=== PATIENT | female | born 1935 | race African-American/Black ===

== ENCOUNTER 2016-12-14 09:00 | Inpatient (IN) | payer OTHER ==
[2017-01-24 09:53] VITALS: BMI 31.7
[2017-01-24] MEDS ORDERED: TRANEXAMIC ACID 1000 MG/10 ML VIAL IVPUSH ONE (16:31)
[2017-01-24] MEDS ORDERED: GABAPENTIN 300 MG CAPSULE (FP) PO ONE (16:31)
[2017-01-24] MEDS ORDERED: CEFAZOLIN 2 GM in DEXTROSE 5%-WATER - 50 ML IVPB ONE (16:31)
[2017-01-24] MEDS ORDERED: ROPIVICAINE 0.2%/MORPH PF/KETOROLAC - 51ML DISP.SYRINGE IA ONE (16:31)
[2017-01-24] MEDS ORDERED: CELECOXIB 200 MG CAPSULE PO ONE (16:31)
[2017-01-25] MEDS ORDERED: ROPIVACAINE 0.2% 400ML 400 ML ML NR ONE (09:12)
[2017-01-25] MEDS ORDERED: oxyCODONE HCL 5 MG TABLET PO PRN (09:12)
[2017-01-25] MEDS ORDERED: CELECOXIB 200 MG CAPSULE ONE (09:39)
[2017-01-25] MEDS ORDERED: BUPIVACAINE HCL/PF (5 MG/ML) 30 ML VIAL IJ ONE (09:56)
[2017-01-25] MEDS ORDERED: MIDAZOLAM HCL 2 MG/2 ML SINGLE DOSE VIAL ONE (09:56)
[2017-01-25] MEDS ORDERED: DEXAMETHASONE SOD PHOSPHATE/PF 10 MG/ML SDV ONE (09:56)
[2017-01-25] MEDS ORDERED: SODIUM CHLORIDE 0.9% P/F 10 ML VIAL IJ ONE (09:56)
[2017-01-25] MEDS ORDERED: oxyCODONE HCL 10 MG SUSTAINED ACTING TABLET PO SCH (10:00)
[2017-01-25] MEDS ORDERED: TRANEXAMIC ACID 1000 MG/10 ML VIAL ONE ×2 (10:07→13:27)
[2017-01-25] MEDS ORDERED: ROPIVICAINE 0.2%/MORPH PF/KETOROLAC - 51ML DISP.SYRINGE IA ONE ×3 (10:08→13:46)
[2017-01-25 10:20] LABS: ACTIVATED PTT 33.8 SECONDS (24.0-38.9)
[2017-01-25 10:24] LABS: INR 1.26 (0.82-1.09)
[2017-01-25] MEDS ORDERED: VANCOMYCIN 1,000 MG VIAL (RESTRICTED TO ID ONLY) ONE ×2 (10:24→11:12)
[2017-01-25] MEDS ORDERED: BUPIVACAINE HCL/PF 0.5% (5MG/ML) 10 ML VIAL ONE (10:57)
[2017-01-25] MEDS ORDERED: ONDANSETRON 4 MG/2 ML VIAL IVPUSH PRN (11:00)
[2017-01-25] MEDS ORDERED: PROPOFOL 20 ML ONE (11:45)
[2017-01-25] MEDS ORDERED: ROCURONIUM BROMIDE 50 MG/5 ML VIAL ONE (11:48)
[2017-01-25] MEDS ORDERED: TRANEXAMIC ACID 1000 MG/10 ML VIAL IVPB ONE ×3 (12:49→18:00)
[2017-01-25] MEDS ORDERED: DEXAMETHASONE SOD PHOSPHATE 4 MG/1 ML VIAL ONE (13:47)
[2017-01-25] MEDS ORDERED: GLYCOPYRROLATE 0.2 MG/1 ML VIAL ONE ×2 (13:47→14:01)
[2017-01-25] MEDS ORDERED: ONDANSETRON 4 MG/2 ML VIAL ONE (13:47)
[2017-01-25] MEDS ORDERED: NEOSTIGMINE METHYLSULFATE 0.5 MG/ML - 10 ML MDV ONE (13:47)
[2017-01-25] MEDS: ACETAMINOPHEN 325 MG TABLET (FP) PO SCH ×2 (15:30→21:48)
[2017-01-25] MEDS ORDERED: ONDANSETRON 4 MG/2 ML VIAL IVPB PRN (17:18)
[2017-01-25] MEDS ORDERED: MAG HYDROX/AL HYDROX/SIMETH 30 ML UNIT-DOSE CUP PO PRN (17:18)
[2017-01-25] MEDS: GABAPENTIN 300 MG CAPSULE (FP) PO SCH (21:48)
[2017-01-25] MEDS: ASCORBIC ACID 500 MG TABLET (FP) PO SCH (21:48)
[2017-01-25] MEDS: FERROUS SO4 325 MG TABLET (FP) PO SCH (21:48)
[2017-01-25] MEDS: SENNOSIDES/DOCUSATE COMBO (SENNA PLUS) TABLET (UD) PO SCH (21:48)
--- NOTE | 2017-01-25 21:53 | CONSULT ---
Consultation: REQUESTING PROVIDER: Dr. Ag CONSULT REQUEST: We have been asked to medically evaluate this patient for ( Medical Management). HISTORY OF PRESENT ILLNESS: This is a 81 y/o female with a PMHx of: Afib, CHF, HTN, RA, Lumbar Radiculopathy, Sjogren's Disease. Who is s/p L-TKR POD #0. Patient is AAOx3. Patient reports full sensation to lower extremity, denies pain PS 0/10. Patient reports voiding, no flatulence, no BM. Patient denies fever, chills, cough, SOB, CP, palpitations, AP, N/V/D, dysuria. PAST MEDICAL HISTORY: Afib CHF HTN RA Lumbar Radiculopathy Sjogren's Disease PAST SURGICAL HISTORY: L-THR R-THR R-TKR SOCIAL HISTORY: Tobacco: Never Alcohol: None Drugs: None Lives with spouse- Independent FAMILY HISTORY: Non-Contributory ALLERGIES: 3 Allergy/AdvReac Type Severity Reaction Status Date / Time tomato Allergy Severe FACIAL Verified 06/03/15 09:00 SWELLING Penicillins Allergy Intermediate FACIAL Verified 06/03/15 09:00 SWELLING HOME MEDICATIONS: 3 Medication Instructions Recorded Albuterol Sulfate [Proventil HFA 1 - 2 inh PO QID PRN 01/24/17 Inhaler -] Carvedilol [Coreg -] 6.25 mg PO BID 01/24/17 Celecoxib [Celebrex] 100 mg PO DAILY PRN 01/24/17 Folic Acid 1 mg PO DAILY 01/24/17 Gabapentin [Neurontin -] 100 mg PO BID 01/24/17 Hydrochlorothiazide 25 mg PO HS 01/24/17 Hydroxychloroquine Sulfate 200 mg PO BID 01/24/17 [Plaquenil] Methotrexate Sodium [Methotrexate] 2.5 mg PO ASDIR 01/24/17 Omeprazole 20 mg PO BID 01/24/17 Spironolactone [Aldactone] 25 mg PO HS 01/24/17 Warfarin Sodium [Coumadin] 3 mg PO DAILY 01/24/17 Warfarin Sodium [Coumadin] 3.5 mg PO ASDIR 01/24/17 Cyclosporine [Restasis] 1 drop OU HS 01/25/17 Latanoprost 0.005% Eye Drops 1 drop OU HS 01/25/17 [Xalatan 0.005% Eye Drops -] REVIEW OF SYSTEMS: CONSTITUTIONAL: Absent: fever, chills, diaphoresis, generalized weakness, malaise, loss of appetite, weight change HEENT: Absent: rhinorrhea, nasal congestion, throat pain, throat swelling, difficulty swallowing, mouth swelling, ear pain, eye pain, visual changes CARDIOVASCULAR: Absent: chest pain, syncope, palpitations, irregular heart rate, lightheadedness , peripheral edema RESPIRATORY: Absent: cough, shortness of breath, dyspnea with exertion, orthopnea, wheezing, stridor, hemoptysis GASTROINTESTINAL: Absent: abdominal pain, abdominal distension, nausea, vomiting, diarrhea, constipation, melena, hematochezia GENITOURINARY: Absent: dysuria, frequency, urgency, hesitancy, hematuria, flank pain, genital pain MUSCULOSKELETAL: Absent: myalgia, arthralgia, joint swelling, back pain, neck pain SKIN: Absent: rash, itching, pallor HEMATOLOGIC/IMMUNOLOGIC: Absent: easy bleeding, easy bruising, lymphadenopathy, frequent infections ENDOCRINE: Absent: unexplained weight gain, unexplained weight loss, heat intolerance, cold intolerance NEUROLOGIC: Absent: headache, focal weakness or paresthesias, dizziness, unsteady gait, seizure, mental status changes, bladder or bowel incontinence PSYCHIATRIC: Absent: anxiety, depression, suicidal or homicidal ideation, hallucinations. PHYSICAL EXAMINATION Vital Signs - 24 hr 01/25/17 01/25/17 01/25/17 04:40 09:48 09:50 Temperature 97.7 F 97.6 F Pulse Rate 78 64 Respiratory 18 18 Rate Blood Pressure 121/73 132/73 O2 Sat by Pulse 98 99 Oximetry (%) 01/25/17 01/25/17 01/25/17 14:45 14:50 14:55 Temperature 97.7 F Pulse Rate 72 71 72 Respiratory 20 20 20 Rate Blood Pressure 157/76 162/79 149/76 O2 Sat by Pulse 99 98 98 Oximetry (%) 01/25/17 01/25/17 01/25/17 15:00 15:15 15:30 Temperature Pulse Rate 71 73 73 Respiratory 20 20 20 Rate Blood Pressure 154/69 151/64 138/78 O2 Sat by Pulse 98 97 97 Oximetry (%) 01/25/17 01/25/17 01/25/17 15:45 16:00 16:15 Temperature 97.7 F Pulse Rate 72 73 72 Respiratory 20 20 20 Rate Blood Pressure 129/90 126/80 128/84 O2 Sat by Pulse 96 96 96 Oximetry (%) 01/25/17 17:27 Temperature 97.7 F Pulse Rate 78 Respiratory 18 Rate Blood Pressure 121/73 O2 Sat by Pulse 98 Oximetry (%) GENERAL: Awake, alert, and fully oriented, in no acute distress. HEAD: Normal with no signs of trauma. EYES: Pupils equal, round and reactive to light, extraocular movements intact, sclera anicteric, conjunctiva clear. No lid lag. EARS, NOSE, THROAT: Ears normal, nares patent, oropharynx clear without exudates. Moist mucous membranes. NECK: Normal range of motion, supple without lymphadenopathy, JVD, or masses. LUNGS: Breath sounds equal, clear to auscultation bilaterally. No wheezes, and no crackles. No accessory muscle use. HEART: Regular rate and rhythm, normal S1 and S2 without murmur, rub or gallop. ABDOMEN: Soft, nontender, not distended, normoactive bowel sounds, no guarding, no rebound, no masses. No hepatomegaly or splenomegaly. MUSCULOSKELETAL: LROM of LLE. Surgical dressing dry and intact, icepack. Normal range of motion at RUE, RLE, LUE joints. No bony deformities or tenderness. No CVA tenderness. UPPER EXTREMITIES: 2+ pulses, warm, well-perfused. No cyanosis. No clubbing. Cap refill <2 seconds. No peripheral edema. LOWER EXTREMITIES: 2+ pulses, warm, well-perfused. No calf tenderness. No peripheral edema. NEUROLOGICAL: Cranial nerves II-XII intact. Normal speech. Gait not observed. PSYCHIATRIC: Cooperative. Good eye contact. Appropriate mood and affect. SKIN: Warm, dry, normal turgor, no rashes or lesions noted. Laboratory Results - last 24 hr 01/25/17 09:00 INR 1.26 H PTT (Actin FS) 33.8 Active Medications Generic Name Dose Route Start Last Admin Trade Name Freq PRN Reason Stop Dose Admin Acetaminophen 650 mg 01/25/17 22:00 01/25/17 21:48 Tylenol - PO 01/28/17 10:01 650 mg Q6H BAYLEE Administration Al Hydroxide/Mg Hydroxide 30 ml 01/25/17 17:18 Mylanta Oral Suspension - PO Q4H PRN INDIGESTION Ascorbic Acid 500 mg 01/25/17 22:00 01/25/17 21:48 Vitamin C - PO 500 mg BID [facility] Administration Celecoxib 200 mg 01/26/17 10:00 Celebrex - PO DAILY [facility] Enoxaparin Sodium 30 mg 01/26/17 14:00 Lovenox - SQ BID [facility] Fentanyl 25 mcg 01/25/17 09:11 Sublimaze Injection - IVPUSH 01/28/17 09:12 [id number] PRN PAIN Ferrous Sulfate 325 mg 01/25/17 22:00 01/25/17 21:48 Feosol - PO 325 mg BID [facility] Administration Gabapentin 300 mg 01/25/17 22:00 01/25/17 21:48 Neurontin - PO 300 mg BID [facility] Administration Lactated Ringer's 1,000 mls @ 125 mls/hr 01/25/17 09:15 Lactated Ringers Solution IV ASDIR [facility] Multivitamins/Minerals/Vitamin C 1 tab 01/26/17 10:00 Tab-A-Vit - PO DAILY [facility] Ondansetron HCl 4 mg 01/25/17 17:18 Zofran Injection IVPB Q6H PRN NAUSEA AND/OR VOMITING Oxycodone HCl 5 mg 01/25/17 09:12 Roxicodone - PO 01/28/17 09:12 Q4H PRN PAIN Oxycodone HCl 10 mg 01/25/17 09:12 Roxicodone - PO 01/28/17 09:13 Q4H PRN PAIN Pantoprazole Sodium 40 mg 01/26/17 10:00 Protonix - PO DAILY [facility] Senna/Docusate Sodium 2 tablet 01/25/17 22:00 01/25/17 21:48 Pericolace - PO 2 tablet BID [facility] Administration Vancomycin HCl 1,000 mg 01/26/17 00:00 Vancomycin (Pre-Docked) IVPB 01/26/17 00:01 ONCE ONE ASSESSMENT/PLAN: This is a 81 y/o female with a PMHx of: Afib, CHF, HTN, RA, Lumbar Radiculopathy , Sjogren's Disease. s/p L- TKR POD #0. 1. Continue ortho regimen 2. Monitor vitals 3. Continue home meds 4. Hold Coumadin x 1 week post-op 5. PT 6. Incentive Spirometer 7. Monitor CBC, BMP 8. DVT/PPI Prophylaxis Dispo: We will continue to follow the patient. Thank you for this consultative opportunity. Problem List - Problems (1) Status post total left knee replacement Code(s): Z96.652 - PRESENCE OF LEFT ARTIFICIAL KNEE JOINT (2) A-fib Code(s): I48.91 - UNSPECIFIED ATRIAL FIBRILLATION (3) Aortic valve insufficiency Code(s): I35.1 - NONRHEUMATIC AORTIC (VALVE) INSUFFICIENCY (4) CHF (congestive heart failure) Code(s): I50.9 - HEART FAILURE, UNSPECIFIED (5) HTN (hypertension) Code(s): I10 - ESSENTIAL (PRIMARY) HYPERTENSION (6) Lumbar radiculopathy Code(s): M54.16 - RADICULOPATHY, LUMBAR REGION (7) Macular degeneration Code(s): H35.30 - UNSPECIFIED MACULAR DEGENERATION (8) Sjogren's disease Code(s): M35.00 - SICCA SYNDROME, UNSPECIFIED (9) Rheumatoid arthritis Code(s): M06.9 - RHEUMATOID ARTHRITIS, UNSPECIFIED (10) DVT prophylaxis Code(s): OWH7555 - Visit type - Emergency Visit Emergency Visit: No - New Patient This patient is new to me today: Yes Date on this admission: 01/25/17 - Critical Care Critical Care patient: No
[2017-01-26] MEDS ORDERED: VANCOMYCIN 1 GRAM (PRE-DOCKED) 1,000 MG/250 ML BAG IVPB ONE
[2017-01-26] MEDS: ACETAMINOPHEN 325 MG TABLET (FP) PO SCH ×5 (04:00→21:26)
[2017-01-26] MEDS ORDERED: ALBUTEROL SO4 6.7 GM HFA INHALER IH PRN (07:06)
[2017-01-26] MEDS: LACTATED RINGERS SOLUTION 1,000 ML IV SCH ×2 (07:21→10:33)
--- NOTE | 2017-01-26 07:49 | OP ---
DATE OF OPERATION: 01/25/2017 SURGEON: Gerardo Steinberg MD [employer] DIVISION MANAGER: Mr. Fabricio Avendano, whose skilled surgical assistance was necessary for the retraction and protection of vital structures and for the handling and implementation of precise and delicate surgical instrumentation as well as the overall safe conveyance of the procedure. ANESTHESIOLOGIST: Kenyetta Phillip MD ANESTHESIA: Adductor canal block with an indwelling catheter as well as vancomycin was given preoperatively for prophylaxis against infection. A gram of tranexamic acid was given preoperatively. A 2nd g was given at the time of wound closure. A 3rd g was instilled into the knee at the time of wound closure. PREOPERATIVE DIAGNOSIS: Rheumatoid arthritic knee with valgus deformity flexion contracture. POSTOPERATIVE DIAGNOSIS: Rheumatoid arthritic knee with valgus deformity flexion contracture. PROCEDURE: Computer-navigated left total knee replacement. HARDWARE USED: [employer] PFC Sigma total knee replacement system with a size 5 cemented femur, size 4 cemented tibia, and a 10-mm polyethylene spacer. Patella was left unresurfaced. Two bags of bone cement were used as well as a vacuum mixing bowl. COMPLICATIONS: None. BLOOD LOSS: Approximately 150 mL. At the conclusion of the procedure, a mixture of ketorolac, ropivacaine, and morphine were instilled into the knee for additional analgesia. INDICATIONS: The patient is an 81-year-old female well known by me. 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 She has a history of a right total knee replacement done by another surgeon years ago from which she is doing well. She is here for severe, progressive left knee osteoarthritis unresponsive to conservative treatment. She has reached the point at times where the pain is horrible. We had discussed treatment options in the office with her and her daughter going over alternatives to surgery. We discussed weight loss, continued physical therapy, injection therapy, medications versus surgery. After a thorough discussion, the patient and her family wished to proceed with surgical intervention. The risks were explained to the patient, which she very well know from her prior surgery as well as her prior hip replacement surgery. She understands there is no guarantee of a good outcome despite the fact that she has done extremely well with other procedures and that she is at increased risk for complications given her underlying medical conditions, that she is at increased risk for blood clot given her history of being on Coumadin, her history of rheumatoid arthritis as well as immunosuppressive drugs place her at a higher risk for infection. She understands this as well as having complications with wound healing. The patient understands this. She was explained the risks include, but not be limited to, infection, stiffness, continued pain, chance not all of her pain symptoms may be relieved. She does also suffer from neuropathy and degenerative spine condition. Chance that she may have a permanent neurologic injury leaving her with permanent loss of use of function of her legs. She is at slightly increased risk for this given that she has a valgus deformity of the knee. When we align her knee, there is a higher potential for an injury to the nerves in her leg, the perineal nerve, chance that she could have a blood clot that could spread from her legs to her lungs and even cause , and this can occur despite anticoagulation and DVT prophylaxis. The patient had stopped her Coumadin, is going to be placed on Lovenox for a week, and then transition back to her preoperative Coumadin. Chance that she could have massive blood loss or chronic transfusion, chance that should she develop an infection it would be a complete disaster necessitating removing her knee, placing her on long-term IV antibiotics, and chance that should an infection not be curable she may require a suppressive therapy or should an infection become life threatening require permanent removal of her knee replacement or a possible amputation. The patient understands this. As a family, they have identified her left knee as the operative site, which was confirmed with the operating room staff, and she agrees to proceed with the planned procedure. DESCRIPTION OF PROCEDURE: After administration of a regional anesthetic by the anesthesiologist, the patient was brought into the operating room where a tourniquet was placed behind the left leg, and the left leg was then prepped and draped in the usual sterile manner. Tourniquet was not inflated during the procedure. A standard midline incision was made approximately 15 cm in length. The incision was carried down to the subcutaneous tissues under the extensor mechanism using the electrocautery device and Aquamantys device to maintain hemostasis throughout the procedure. The extensor mechanism was entered at the junction between the lateral and medial 1/3 of the quadriceps tendon. The incision was carried down through subcutaneous tissues curving medially around the medial patella retinaculum leaving a small cuff of tissue for later reapproximation. The patella was everted. The patient had obvious, severe degenerative changes of her knee. There appeared to be inflammatory pannus, which were sent as specimen particularly around the lateral compartment where the more severe deformity of her knee was present. Not so many osteophytes that overall looked like an inflammatory arthropathy in her knee as was the preoperative diagnosis. ACL was released. Menisci were removed. PCLs were accessed. Slight lateral capsular release was performed, which did correct some of her valgus deformity. Two sets of 4-mm guide pins were then placed in the medial aspect of the proximal tibia and medial aspect of the distal femur too, which the computer ray were attached. The patient's hip center of rotation and then bony anatomy were then entered into the computer navigation device. The tibia and then the femur were then machined to correct the patient's nearly 12-degree valgus deformity and flexion contracture creating balance flexion extension gaps and a neutral varus valgus alignment with a trial size 5 femur and a size 4 tibia with a 10-mm trial polyethylene tray. There was full and easy extension of the knee with good tracking of the patella, balanced flexion extension gaps, neutral varus valgus alignment with good full and easy flexion of the knee. The trial components were removed, and the wounds were then irrigated with copious amounts of normal saline solution. Gentle lavage was then used to prepare the exposed bony cancellous surfaces of the distal femur and proximal tibia. Two bags of bone cement was then mixed in a vacuum mixing bowl. These were then precoated over the tibial component and then finger pressurized over the exposed bony cancellous surfaces. The tibial and femoral components were then impacted in place and held in extension with a trial polyethylene spacer until the cement had hardened. All excess bone cement was then removed. The knee was then taken through a range of motion of the trial spacer and found to have full and easy extension and full and easy flexion with balanced flexion and extension gaps, neutral varus valgus alignment with good tracking of the patella. The trial patella was then removed. The final polyethylene spacer was then impacted and placed and found to have equal stability and equal soft tissue tensioning to that of the trial. The wounds were then irrigated with copious amounts of antibiotic normal saline solution. A dilute Betadine solution was instilled into the knee and left to sit for 3 minutes. After 3 minutes, this was evacuated. The wounds were then irrigated once again with copious amounts of antibiotic normal saline solution. Hemostasis was achieved with the electrocautery device. The extensor mechanism was then closed with interrupted [id number] No. 1 Vicryl sutures and a running subcuticular suture with a No. 1 Stratafix suture, 1 g of tranexamic acid as well as the pain cocktail. Aforementioned pain cocktail instilled in the knee. The subcutaneous tissues were then irrigated with copious amounts of antibiotic normal saline solution. The deeper subcutaneous tissues were closed with 2-0 Vicryl sutures, and a running 2-0 Stratafix suture was then used to reapproximate the skin edges. The wounds were then further closed with Dermabond as were the pin sites. An Aquacel dressing was then applied, and an ABD pad was applied. Thigh-high Chip stockings were then placed on the leg, and the patient was then transported to the recovery room in stable condition having tolerated the procedure well. Intraoperative films revealed external position of the components. The patient was then in the recovery room postoperatively. She will be full weightbearing as tolerated. She is going to have DVT prophylaxis with Lovenox 30 mg b.i.d. for 1 week then being transitioned back to Coumadin around 1 week time as she is also going to have DVT prophylaxis with sequential compression device and thigh-high Chip stockings. We are not going to use a Corey catheter for fear of causing a periprosthetic infection, we are going to discontinue prophylactic vancomycin antibiotics within 24 hours. GERARDO STEINBERG M.D. [id number]
[2017-01-26] MEDS ORDERED: BENZOCAINE/MENTH/CETYLPYRD CL 1 EACH LOZENGE MM PRN (09:13)
--- NOTE | 2017-01-26 09:13 | PN ---
Physical Exam: SUBJECTIVE: Patient seen and examined, patient reports feeling well,reports pain upon movement to the left knee OBJECTIVE:This is a 81 y/o female with a PMHx of: Afib, asthma, CHF, HTN, RA, Lumbar Radiculopathy, Sjogren's Disease. patient is s/p L-TKR POD # 1 ([facility]) PCP: Dr Irwin Vital Signs Period Temp Pulse Resp BP Sys/Glez Pulse Ox Last 24 Hr 97.6 F-98.8 F 64-78 18-20 118-162/64-90 96-99 GENERAL: The patient is awake, alert, and fully oriented, in no acute distress. HEAD: Normal with no signs of trauma. EYES: PERRL, extraocular movements intact, sclera anicteric, conjunctiva clear. No ptosis. ENT: Ears normal, nares patent, oropharynx clear without exudates, moist mucous membranes. NECK: Trachea midline, full range of motion, supple. LUNGS: Breath sounds equal, clear to auscultation bilaterally, no wheezes, no crackles, no accessory muscle use. HEART: Regular rate and rhythm, S1, S2 without murmur, rub or gallop. ABDOMEN: Soft, nontender, nondistended, normoactive bowel sounds, no guarding, no rebound, no hepatosplenomegaly, no masses. EXTREMITIES: 2+ pulses, warm, well-perfused, no edema. LEFT LOWER EXTREMITY: dressing CDI, less than 3 second capillary refill +4 pedal pulse NEUROLOGICAL: Cranial nerves II through XII grossly intact. Normal speech, gait not observed. PSYCH: Normal mood, normal affect. SKIN: Warm, dry, normal turgor, no rashes or lesions noted Laboratory Results - last 24 hr 01/25/17 09:00 INR 1.26 H PTT (Actin FS) 33.8 Active Medications Generic Name Dose Route Start Last Admin Trade Name Freq PRN Reason Stop Dose Admin Acetaminophen 650 mg 01/25/17 22:00 01/26/17 04:00 Tylenol - PO 01/28/17 10:01 650 mg Q6H BAYLEE Administration Al Hydroxide/Mg Hydroxide 30 ml 01/25/17 17:18 Mylanta Oral Suspension - PO Q4H PRN INDIGESTION Albuterol Sulfate 2 puff 01/26/17 07:06 Ventolin Hfa Inhaler - IH Q4H PRN SHORT OF BREATH/WHEEZING Ascorbic Acid 500 mg 01/25/17 22:00 01/25/17 21:48 Vitamin C - PO 500 mg BID [facility] Administration Carvedilol 6.25 mg 01/26/17 10:00 Coreg - PO BID [facility] Celecoxib 200 mg 01/26/17 10:00 Celebrex - PO DAILY [facility] Enoxaparin Sodium 30 mg 01/26/17 14:00 Lovenox - SQ BID [facility] Fentanyl 25 mcg 01/25/17 09:11 Sublimaze Injection - IVPUSH 01/28/17 09:12 [id number] PRN PAIN Ferrous Sulfate 325 mg 01/25/17 22:00 01/25/17 21:48 Feosol - PO 325 mg BID [facility] Administration Folic Acid 1 mg 01/26/17 10:00 Folic Acid - PO DAILY [facility] Gabapentin 300 mg 01/25/17 22:00 01/25/17 21:48 Neurontin - PO 300 mg BID [facility] Administration Hydrochlorothiazide 25 mg 01/26/17 10:00 Hctz - PO DAILY [facility] Hydroxychloroquine Sulfate 200 mg 01/26/17 10:00 Plaquenil - PO BID [facility] Lactated Ringer's 1,000 mls @ 125 mls/hr 01/25/17 09:15 01/26/17 07:21 Lactated Ringers Solution IV Not Given ASDIR [facility] Latanoprost 1 drop 01/26/17 22:00 Xalatan 0.005% Eye Drops - [facility] Multivitamins/Minerals/Vitamin C 1 tab 01/26/17 10:00 Tab-A-Vit - PO DAILY [facility] Ondansetron HCl 4 mg 01/25/17 17:18 Zofran Injection IVPB Q6H PRN NAUSEA AND/OR VOMITING Oxycodone HCl 5 mg 01/25/17 09:12 Roxicodone - PO 01/28/17 09:12 Q4H PRN PAIN Oxycodone HCl 10 mg 01/25/17 09:12 Roxicodone - PO 01/28/17 09:13 Q4H PRN PAIN Pantoprazole Sodium 40 mg 01/26/17 10:00 Protonix - PO DAILY [facility] Senna/Docusate Sodium 2 tablet 01/25/17 22:00 01/25/17 21:48 Pericolace - PO 2 tablet BID [facility] Administration ASSESSMENT/PLAN: This is a 81 y/o female with a PMHx of: Afib, CHF, HTN, RA, Lumbar Radiculopathy , Sjogren's Disease. s/p L- TKR POD #0. 1) MS s/P left TKR POD #1 - physical therapy as per orthopedic regimen - When necessary pain medication - Continue incentive spirometer Rheumatoid arthritis -Hold methotrexate restart upon the approval of orthopedist and rheumatology - continue plaquenil 2) card afib - Rate controlled continue Coreg - Hold Coumadin for 1 week postop continue Lovenox CHF - She appears euvolemic on exam hypertension - B/P at goal 3) pulm asthma - no acute exacerbation at this time continue albuterol when necessary - encourage incentive spriometer f/e/n -low sodium diet ppx -oob -pt - lovenox - protonix Dispo: We will continue to follow the patient. Thank you for this consultative opportunity. Visit type - Emergency Visit Emergency Visit: No - New Patient This patient is new to me today: Yes Date on this admission: 01/26/17 - Critical Care Critical Care patient: No - Discharge Referral Referred to [facility] No
[2017-01-26] MEDS: FERROUS SO4 325 MG TABLET (FP) PO SCH ×2 (10:31→21:25)
[2017-01-26] MEDS: HYDROCHLOROTHIAZIDE 25 MG TABLET (FP) PO SCH (10:31)
[2017-01-26] MEDS: PANTOPRAZOLE 40 MG TABLET (FP) PO SCH (10:32)
[2017-01-26] MEDS: ASCORBIC ACID 500 MG TABLET (FP) PO SCH ×2 (10:32→21:26)
[2017-01-26] MEDS: MULTIVITAMINS (DAILY MVI) TABLET (FP) PO SCH (10:32)
[2017-01-26] MEDS: SENNOSIDES/DOCUSATE COMBO (SENNA PLUS) TABLET (UD) PO SCH ×2 (10:32→21:26)
[2017-01-26] MEDS: GABAPENTIN 300 MG CAPSULE (FP) PO SCH ×2 (10:32→21:26)
[2017-01-26] MEDS: CELECOXIB 200 MG CAPSULE PO SCH (10:32)
[2017-01-26] MEDS: CARVEDILOL 6.25 MG TABLET (FP) PO SCH ×2 (10:32→21:25)
[2017-01-26] MEDS: FOLIC ACID 1 MG TABLET (FP) PO SCH (10:32)
[2017-01-26] MEDS: HYDROXYCHLOROQUINE SO4 200 MG TABLET (FP) PO SCH ×2 (10:34→21:26)
[2017-01-26] MEDS ORDERED: PT OWN MED DRAWER 7, Y5N ONE ×2 (10:34→21:09)
[2017-01-26] MEDS: ENOXAPARIN NA (PORCINE) 30 MG/0.3 ML DISP.SYRIN SQ SCH ×2 (14:20→21:26)
--- NOTE | 2017-01-26 14:22 | PN ---
Progress Note (short form) - Note Progress Note: 81F POD 1 s/p left total knee replacement under spinal anesthetic and continuous adductor canal catheter for post operative pain doing well. Pt reports no anesthetic complications, AVSS, states that she has no pain. Sensory and motor function is intact in both lower extremities.
[2017-01-26] MEDS ORDERED: LATANOPROST 0.005% OPHTH SOLN 2.5ML BOTTLE OU SCH (22:00)
[2017-01-26] MEDS ORDERED: guaiFENesin 200 MG/10 ML 10 ML UNIT-DOSE CUPS PO ONE (22:12)
[2017-01-27] MEDS: oxyCODONE HCL 5 MG TABLET PO PRN ×2 (02:05→09:39)
[2017-01-27] MEDS: ACETAMINOPHEN 325 MG TABLET (FP) PO SCH ×2 (04:25→09:28)
[2017-01-27 07:36] VITALS: BP 125/64; PULSE 71; TEMP 97.8
[2017-01-27] MEDS: MULTIVITAMINS (DAILY MVI) TABLET (FP) PO SCH (09:26)
[2017-01-27] MEDS: CELECOXIB 200 MG CAPSULE PO SCH (09:26)
[2017-01-27] MEDS: CARVEDILOL 6.25 MG TABLET (FP) PO SCH (09:27)
[2017-01-27] MEDS: ENOXAPARIN NA (PORCINE) 30 MG/0.3 ML DISP.SYRIN SQ SCH (09:27)
[2017-01-27] MEDS: HYDROCHLOROTHIAZIDE 25 MG TABLET (FP) PO SCH (09:27)
[2017-01-27] MEDS: GABAPENTIN 300 MG CAPSULE (FP) PO SCH (09:27)
[2017-01-27] MEDS: HYDROXYCHLOROQUINE SO4 200 MG TABLET (FP) PO SCH (09:27)
[2017-01-27] MEDS: ASCORBIC ACID 500 MG TABLET (FP) PO SCH (09:27)
[2017-01-27] MEDS: FOLIC ACID 1 MG TABLET (FP) PO SCH (09:27)
[2017-01-27] MEDS: SENNOSIDES/DOCUSATE COMBO (SENNA PLUS) TABLET (UD) PO SCH (09:27)
[2017-01-27] MEDS: PANTOPRAZOLE 40 MG TABLET (FP) PO SCH (09:27)
[2017-01-27] MEDS: FERROUS SO4 325 MG TABLET (FP) PO SCH (09:28)
[2017-01-27] MEDS: LACTATED RINGERS SOLUTION 1,000 ML IV SCH (09:39)
[2017-01-27 11:23] LABS: ANION GAP 9 (8-16); CALCIUM 8.4 mg/dl (8.4-10.2); CO2 20 mmol/L (22-28); CREATININE 2.1 mg/dl (0.6-1.3); GLUCOSE,RANDOM 93 mg/dl (74-106)
[2017-01-27 12:02] LABS: BASOPHIL 0.5 % (0-2.0); EOSINOPHIL 2.8 % (0-4.5); MCHC 32.1 g/dl (32.0-36.0); MEAN PLT VOLUME 8.6 fl (7.5-11.1); NEUTROPHILS 61.5 % (42.8-82.8); PLATELET COUNT 205 K/MM3 (134-434); RDW 15.6 % (11.6-15.6); WHITE BLOOD COUNT 8.2 K/mm3 (4.0-10.8)
--- NOTE | 2017-01-27 13:12 | PATH ---
Surgical Pathology Report Patient Name: RODRIGUEZ SANCHEZ Med. Rec. #: [id number] /Age/Gender: 1935 (Age: 81) / F Account: [id number] Location: [facility] MED-SURG Taken: 01/25/2017 Received: 01/25/2017 Reported: 01/27/2017 Physicians: Elda Ag M.D. Specimen(s) Received LEFT KNEE BONES Clinical History Unilateral primary osteoarthritis Final Diagnosis BONE AND SOFT TISSUE, LEFT KNEE, REPLACEMENT: DEGENERATIVE JOINT DISEASE. Electronically Signed Trent Gardner M.D. Gross Description Received in formalin labeled "left knee bone," is a 14.0 x 11.5 x 1.8 cm aggregate of multiple irregular, unoriented portions of bone and soft tissue. The tibial plateau measures 8.2 x 6.0 x 1.8 cm. There is a 3.1 cm greatest dimension area of eburnation present. The remaining articular surfaces are young-yellow and diffusely nodular and granular. The underlying trabecular bone is yellow and hard. [employer] sections are submitted in one cassette, following decalcification. 01/26/2017 [facility]01/26/2017
--- NOTE | 2017-01-27 14:29 | PN ---
Progress Note (short form) - Note Progress Note: S: Pt. very comfortable O: VAS 10/18 A/P: pod#2 s/p left tkr 1. adductor canal cath pulled. tip intact. 2. continue pain meds as ordered.
== END 2017-01-27 12:49 | DRG 470 ==
LOC: FM/S 01-25 08:21
PROVIDERS: ADMIT Orthopaedic Surgery; ATTEND Orthopaedic Surgery
PROC: 8E0YXBZ Computer Assisted Procedure of Lower Extremity (ICD-10-PCS; 2017-01-25)
PROC: 0SRD0J9 Replacement of Left Knee Joint with Synthetic Substitute, Cemented, Open Approach (ICD-10-PCS; principal; 2017-01-25 12:26)
DX: M06.862 Other specified rheumatoid arthritis, left knee (principal); M35.00 Sjogren syndrome, unspecified; I48.91 Unspecified atrial fibrillation; M54.16 Radiculopathy, lumbar region; I11.0 Hypertensive heart disease with heart failure; I50.9 Heart failure, unspecified; Z79.01 Long term (current) use of anticoagulants; I35.1 Nonrheumatic aortic (valve) insufficiency; H35.30 Unspecified macular degeneration; J45.909 Unspecified asthma, uncomplicated
CPT/HCPCS: 36415; 73560-TC-LT; 80048; 85025; 85610; 85730; 88305-TC; 88311-TC; 94760; 97116-GP; 97162-PG